=== PATIENT | female | born 1985 | race Caucasian/White ===

== ENCOUNTER 2020-10-13 11:09 | Outpatient (REF) | payer OTHER, SELFPAY | END 2020-10-13 11:10 | disposition home or self-care (01) | LOC: HO.LAB 11:09 | PROVIDERS: Visit Provider Internal Medicine | DX: Z20.822 Contact with and (suspected) exposure to COVID-19 (principal) | CPT/HCPCS: C9803; U0003; U0005 ==

== ENCOUNTER 2021-07-17 11:40 | Outpatient (REF) | payer OTHER, SELFPAY ==
[2021-07-17 13:02] LABS: Rheumatoid Factor < 15.0 IU/mL (<15.0)
[2021-07-17 15:18] LABS: Erythrocyte Sedimentation Rate 8 MM/HR (0-20)
[2021-07-18 10:15] LABS: Lyme Abs Screen <0.90 index
[2021-07-19 13:31] LABS: Anti Nuclear Antibody Screen NEGATIVE (NEGATIVE)
== END 2021-07-17 11:41 | disposition home or self-care (01) ==
LOC: HO.LAB 11:40
PROVIDERS: Psychiatry & Neurology Neurology; PCP Internal Medicine; Visit Provider Psychiatry & Neurology Neurology
DX: M54.9 Dorsalgia, unspecified (principal)
CPT/HCPCS: 36415; 82550; 85652; 86038; 86039; 86431; 86617; 86618

== ENCOUNTER 2021-07-20 12:35 | Outpatient (REF) | payer OTHER, SELFPAY ==
--- NOTE | ~2021-07-20 | MR_ITS ---
EXAMINATION: MR THORACIC SPINE WITHOUT CONTRAST CLINICAL INFORMATION: Back pain. COMPARISON: None TECHNIQUE: MRI of the thoracic spine was obtained using routine sequences without contrast. FINDINGS: The marrow signal is homogeneous and the discs are well hydrated. There is no central canal stenosis or foraminal narrowing. No subluxations or compression fractures. No disc protrusions are seen. No cord signal abnormality identified. There is no central canal stenosis or foraminal narrowing. Mild dorsal epidural lipomatosis noted from the T4 through the T7 levels in the mid thoracic spine with ventral displacement of the thecal sac within the canal. No cord compression. The paraspinal soft tissues appear normal. The imaged portions of the lungs are relatively clear. The craniovertebral junction appears grossly normal on the nondiagnostic localizer acquisition. MR/MR thoracic spine wo con IMPRESSION: Mild dorsal epidural lipomatosis from the T4 through the T7 levels resulting in mild impression upon the thecal sac, though without cord compression. No disc pathology, central canal stenosis, or foraminal narrowing.
== END 2021-07-20 12:36 | disposition home or self-care (01) ==
LOC: HO.MRI 12:35
PROVIDERS: Visit Provider Psychiatry & Neurology Neurology
DX: M54.9 Dorsalgia, unspecified (principal)
CPT/HCPCS: 72146

== ENCOUNTER 2023-01-22 10:05 | Outpatient (AMB) | payer OTHER, SELFPAY ==
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
[2023-01-22 10:07] VITALS: BP 132/80; PULSE 84; O2SAT 97; BMI 33.5
== END 2023-01-22 11:20 | disposition home or self-care (01) ==
PROVIDERS: Visit Provider Nurse Practitioner Family
DX: R42 Dizziness and giddiness (principal); G43.909 Migraine, unspecified, not intractable, without status migrainosus
CPT/HCPCS: 99204

== ENCOUNTER → 2023-01-22 10:05 | Outpatient (BNVA) | payer OTHER, SELFPAY | PROVIDERS: Visit Provider Nurse Practitioner Family | DX: R42 Dizziness and giddiness (principal); G43.909 Migraine, unspecified, not intractable, without status migrainosus | CPT/HCPCS: 99202 ==

== ENCOUNTER 2023-05-07 10:50 | Outpatient (AMB) | payer OTHER, SELFPAY ==
--- NOTE | 2023-05-07 11:32 | MHC.OFFVIS ---
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 Patient states it's better i still have my days. Allergies No Known Allergies Allergy (Verified 05/07/23 11:41) Medication List - Last Reconciled 05/07/23 by MT Louise amitriptyline 10 mg PO BEDTIME 30 days multivitamin 1 tab PO DAILY ondansetron HCl 4 mg PO Q6H PRN 30 days sumatriptan succinate 50 - 100 mg orally at onset of headache, may repeat in 2 hrs PRN; max 2 tabs per day or 4 tabs/week (may take with Ibuprofen) 30 days HPI HPI Comments History of Present Illness Details 37-yr-old female presents for f/u visit. Pt denies any significant interval medical changes. Pt states she is feeling better. She has good days and bad days. Still having bouts of headaches and dizziness. She states the zofran helps. Believes she is taking the Amitriptyline. Is not sure if she took or ran out of the sumatriptan. She did not start PT- states never received a call but her number had changed [facility] Surgical History History of section History of hip surgery Hx of appendectomy Hx of eye surgery Social History (Updated 01/22/23 @ 10:12 by Sheree Schwartz CMA) Alcohol intake: never Review of Systems Const All systems reviewed & are unremarkable except as noted in HPI and below Physical Exam Vital Signs: Last Vital Signs BP 130/78 05/07/23 11:40 BMI result Body Mass Index 27.1 Const General: cooperative and no acute distress Orientation/consciousness: patient oriented x3 HEENT Head: Yes normocephalic Resp Effort & Inspection: normal respiratory effort and able to speak in complete sentences Neuro General: patient oriented x3, gait normal and CN's II-XI intact bilaterally Cognition (Neuro): normal cognition Motor exam (neuro): 5/5 motor strength present throughout Psych Appearance: grossly normal Mental Status: mental status grossly normal Speech and movement: Normal speech and movement present Affect: normal affect Attitude: cooperative Thought process: Normal thought process present Thought content: Normal thought content present Insight: Good insight present (Psych) Judgement: Good judgement present (Psych) Assessment & Plan Assessment & Plan (1) Dizziness: Comment: ? vestibular migraine, less suspicion for BPPV Code(s): R42 - Dizziness and giddiness (2) Migraine: Code(s): G43.909 - Migraine, unspecified, not intractable, without status migrainosus Plan Pt again advised to have PT vestibular eval & tx. Continue Zofran 4mg prn N/V- may use especially for PT tx's. Re-try Sumatriptan 100mg tab, 1/2 - 1 tab (50-100mg) at onset of headache, may repeat in 2 hours. Max of 2 tabs (200mg) per 24 hours. May adjunct with OTC Tylenol 650mg q 4 hours, Ibuprofen 600mg q 6 hours, or Naproxen 440mg q 12 hrs prn. Continue Amitriptyline 10mg qhs. f/u in 6 months or sooner prn. Medications: Refilled amitriptyline 10 mg PO BEDTIME 30 days 30 tabs 6RF ondansetron HCl 4 mg PO Q6H 30 days PRN 20 tabs 6RF nausea and vomiting sumatriptan succinate (0.5 - 1 x 100 mg) 50 - 100 mg orally at onset of headache, may repeat in 2 hrs PRN; max 2 tabs per day or 4 tabs/week (may take with Ibuprofen) 30 days 12 tabs 6RF migraine headache Coding Level of Care Code Est Pt Level 4 (98964) Diagnoses Dizziness R42 Migraine G43.909
[2023-05-07 11:40] VITALS: BP 130/78; BMI 27.1
== END 2023-05-07 11:56 | disposition home or self-care (01) ==
PROVIDERS: PCP Internal Medicine; Visit Provider Nurse Practitioner Family
DX: R42 Dizziness and giddiness (principal); G43.909 Migraine, unspecified, not intractable, without status migrainosus
CPT/HCPCS: 99214

== ENCOUNTER → 2023-05-07 10:50 | Outpatient (BNVA) | payer OTHER, SELFPAY | PROVIDERS: PCP Internal Medicine; Visit Provider Nurse Practitioner Family | DX: G43.909 Migraine, unspecified, not intractable, without status migrainosus (principal); R42 Dizziness and giddiness | CPT/HCPCS: 99212 ==

== ENCOUNTER 2025-04-29 14:47 | Outpatient (AMB) | payer OTHER, SELFPAY ==
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
[2025-04-29 15:14] VITALS: BP 142/80; PULSE 81; O2SAT 98; BMI 39.1
== END 2025-04-29 15:47 | disposition home or self-care (01) ==
PROVIDERS: PCP Student in an Organized Health Care Education/Training Program; Visit Provider Registered Nurse Emergency
DX: M54.16 Radiculopathy, lumbar region (principal); G89.4 Chronic pain syndrome; M79.7 Fibromyalgia; M51.369 Other intervertebral disc degeneration, lumbar region without mention of lumbar back pain or lower extremity pain
CPT/HCPCS: 99204

== ENCOUNTER → 2025-04-29 14:47 | Outpatient (BNVA) | payer OTHER, SELFPAY | PROVIDERS: PCP Student in an Organized Health Care Education/Training Program; Visit Provider Registered Nurse Emergency | DX: M54.16 Radiculopathy, lumbar region (principal); G89.4 Chronic pain syndrome; M79.7 Fibromyalgia; M51.360 Other intervertebral disc degeneration, lumbar region with discogenic back pain only | CPT/HCPCS: 99202 ==

== ENCOUNTER 2025-05-13 18:25 | Emergency (ER) | payer OTHER, SELFPAY ==
--- NOTE | ~2025-05-13 | CT_ITS ---
CLINICAL HISTORY: diverticultis?? CT abdomen and pelvis with contrast Comparison: None provided Findings: No consolidation or effusion. Focal areas of cortical atrophy of the left kidney. No hydronephrosis of either kidney. No ureteral stones. Spleen, adrenal glands, pancreas, gallbladder and liver are normal. No bowel obstruction, pneumoperitoneum, or pneumatosis. No significant diverticular disease. No evidence of diverticulitis. Minimal fecal loading in the right colon. The remainder of the colon is decompressed. There is global fatty infiltration of the colon wall, a finding that can be associated with history of inflammatory bowel disease. No wall thickening of the small bowel or colon. Small fat containing umbilical hernia. The appendix is surgically absent. Uterus and adnexa are normal. The bones are intact. IMPRESSION: No acute findings. This document has been electronically signed by: Artur Gerard MD on 05/13/2025 23:59:58
[2025-05-13 18:31] VITALS: BP 153/86; PULSE 99; RESP 20; TEMP 36.7; O2SAT 96; BMI 39.1
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
[2025-05-13 19:14] LABS: MANUAL DIFF FLAG NO
[2025-05-13 19:17] LABS: Hematocrit 37.7 % (37.0-47.0); Hemoglobin 11.9 g/dl (12.0-16.0); Imm Gran Abs Auto 0.02 X10*3/uL (0.00-0.03); Imm Gran Pct Auto 0.3 % (0.0-0.4); Lymphocytes Absolute Auto 2.5 X10*3/uL (1.2-4.9); Mean Corpuscular HGB Conc 31.6 g/dl (31.0-35.0); Mean Corpuscular Hemoglobin 26.2 pg (27.0-33.0); Mean Corpuscular Volume 82.9 fL (80.0-98.0); NRBC Abs Auto 0.000 X10*3/uL (0.0-0.012); NRBC Pct Auto 0.0 /100WBC (0.0-0.2); Platelet Count 243 X10*3/uL (160-400); Red Blood Count 4.55 X10*6/uL (4.20-5.50); White Blood Count 7.6 X10*3/uL (4.8-10.8)
[2025-05-13 19:18] LABS: Appearance Urine Clear; Glucose Urine UA Negative (Negative); PH 6.0 (5.0-9.0); Specific Gravity - Urine 1.015 (1.005-1.025)
[2025-05-13 19:37] LABS: Alanine Aminotransferase 29 U/L (0-31); Albumin Level 4.5 g/dL (3.5-5.0); Alkaline Phosphatase 105 U/L (39-117); Anion Gap 11 (12-20); Aspartate Amino Transferase 25 U/L (5-31); Blood Urea Nitrogen 18 mg/dL (9-16); Calcium 9.1 mg/dL (8.4-10.2); Carbon Dioxide 26 mmol/L (22-29); Chloride 108 mmol/L (96-108); Creatinine Clr Calc Pharmacy 123.0; Estimated Glomerular Filt Rate > 60; Lipase 24 U/L (8-78); Potassium 3.8 mmol/L (3.3-5.1); Sodium 141 mmol/L (135-145); Total Protein 7.6 g/dL (6.5-8.0)
[2025-05-13 20:23] VITALS: BP 131/79; PULSE 79; RESP 20; TEMP 36.7; O2SAT 99
[2025-05-13 21:16] VITALS: RESP 17
[2025-05-13 21:20] LABS: IDNOW Serial# 55D5AD1C; IDNOW Serial# 58CA691E; Influenza B2 Negative (Negative)
[2025-05-13 21:21] LABS: COVID-19 Test Negative (Negative)
[2025-05-13] MEDS: iohexoL 350 MG/ML 100 ML INFUS..BTL 85 ML IV (22:56)
--- NOTE | 2025-05-13 23:36 | PC.NURSE ---
fluids still infusing at this time. Pt reminded to keep arm straight as pt has IV access in the LAC.
[2025-05-14 01:01] VITALS: BP 137/81; PULSE 82; RESP 17; TEMP 36.7; O2SAT 100
== END 2025-05-14 01:18 | disposition home or self-care (01) ==
PROVIDERS: Physician Assistant Medical; Registered Nurse Emergency; Emergency Provider Emergency Medicine; PCP Student in an Organized Health Care Education/Training Program
DX: R10.30 Lower abdominal pain, unspecified (principal); K62.5 Hemorrhage of anus and rectum; K59.00 Constipation, unspecified; K64.9 Unspecified hemorrhoids; Z03.818 Encounter for observation for suspected exposure to other biological agents ruled out
CPT/HCPCS: 36415; 74177; 80053; 81003; 83690; 84702; 85025; 87502; 87635; 96361; 96374; 96375; 99284; J2270; J2405; Q9967

== ENCOUNTER → 2025-05-13 20:59 | Outpatient (BNV) | payer OTHER, SELFPAY | PROVIDERS: Emergency Provider Emergency Medicine; PCP Student in an Organized Health Care Education/Training Program; Visit Provider Radiology Diagnostic Radiology | DX: Z03.89 Encounter for observation for other suspected diseases and conditions ruled out (principal) | CPT/HCPCS: 74177 ==